=== PATIENT | male | born 1990 | race Caucasian/White ===

== ENCOUNTER 2016-09-06 15:32 | Emergency (ER) | payer BC ==
[2016-09-06 15:58] VITALS: BP 133/76
--- NOTE | 2016-09-06 16:13 | UC ---
Lower Extremity/Ankle HPI - HPI Summary HPI Summary: rolled right ankle 2d ago while playing basketball. Has sprained this ankle multiple times, this pain feels different. Foot went forward and hyperflexed during injury. Can bear weight, but painful. Would like XRay since it feels different from prior sprains. - History of Current Complaint Chief Complaint: UCLowerExtremity Stated Complaint: RIGHT ANKLE INJURY Time Seen by Provider: 09/06/16 16:05 Hx Obtained From: Patient Onset/Duration: Sudden Onset, Lasting Days - 2 Severity Initially: Mild Severity Currently: Mild Aggravating Factor(s): Ambulation Alleviating Factor(s): Rest, Elevation, Ice Able to Bear Weight: Yes - limping gait - Risk Factors Gout Risk Factors: Male DVT Risk Factors: Negative Septic Arthritis Risk Factor: Negative - Allergies/Home Medications Allergies/Adverse Reactions: Allergies Allergy/AdvReac Type Severity Reaction Status Date / Time No Known Allergies Allergy Verified 09/06/16 15:58 Home Medications: Home Medications Ibuprofen TAB* [Advil TAB*] 400 mg PO Q6H PRN 09/06/16 [History Confirmed ] Multiple Vitamin [Multi Vitamin] 1 tab PO DAILY 09/06/16 [History Confirmed ] PMH/Surg Hx/FS Hx/Imm Hx Endocrine History Of: Reports: Diabetes, Thyroid Disease - s/p thyroidectomy - Surgical History Surgical History: Yes Surgery Procedure, Year, and Place: Thyroidectomy, 2014, [place]; Right Shoulder , 2009, [place] - Family History Known Family History: Positive: Hypertension Negative: Diabetes - Social History Occupation: Employed Full-time Lives: With Family Alcohol Use: Weekly Substance Use Type: None Smoking Status (MU): Never Smoked Tobacco - Immunization History Most Recent Influenza Vaccination: Not the Season Review of Systems Constitutional: Negative Skin: Negative Eyes: Negative ENT: Negative Respiratory: Negative Cardiovascular: Negative Gastrointestinal: Negative Genitourinary: Negative Motor: Negative Neurovascular: Negative Musculoskeletal: Arthralgia, Edema, Myalgia Neurological: Negative Psychological: Negative All Other Systems Reviewed And Are Negative: Yes Physical Exam Triage Information Reviewed: Yes Appearance: Well-Appearing, No Pain Distress, Well-Nourished Vital Signs: Initial Vital Signs Temp 98.5 F 09/06/16 15:47 Pulse 80 09/06/16 15:47 Resp 14 09/06/16 15:47 BP 133/76 09/06/16 15:47 Pulse Ox 100 09/06/16 15:47 Vital Signs Reviewed: Yes Eye Exam: Normal Respiratory Exam: Normal Cardiovascular Exam: Normal Musculoskeletal Exam: Other - tenderness and mild swelling over lateral malleolus. Bruising beneath medial malleolus. No pain at base 5th MT or dorsum foot. Neurological Exam: Normal Psychological Exam: Normal Skin Exam: Normal Diagnostics - Laboratory Diagnostic Studies Completed/Ordered: xray neg Lower Extremity Course/Dx - Differential Dx/Diagnosis Differential Diagnosis/HQI/PQRI: Fracture (Closed), Sprain Provider Diagnoses: ankle sprain Discharge - Discharge Plan Condition: Stable Disposition: HOME Patient Education Materials: Ankle Sprain (ED), Ankle Stirrup Splint (ED), Ankle Exercises (GEN) Referrals: Non Staff,Doctor [Primary Care Provider] -
--- NOTE | 2016-09-06 16:35 | RAD ---
INDICATION: Right ankle injury COMPARISON: None TECHNIQUE: AP, lateral, and oblique views were obtained. FINDINGS: The bony structures, joint spaces, and soft tissues are normal for age. IMPRESSION: NEGATIVE EXAMINATION
== END 2016-09-06 16:58 | disposition home or self-care (01) ==
LOC: UCCORT 15:32
DX: S93.401A Sprain of unspecified ligament of right ankle, initial encounter (principal); X50.1XXA Overexertion from prolonged static or awkward postures, initial encounter; Y93.67 Activity, basketball; Y92.310 Basketball court as the place of occurrence of the external cause
CPT/HCPCS: 99212; G0463

== ENCOUNTER 2016-10-11 08:04 | Emergency (ER) | payer BC ==
[2016-10-11 08:27] VITALS: BP 101/57
--- NOTE | 2016-10-11 08:37 | UC ---
Throat Pain/Nasal Cain HPI - HPI Summary HPI Summary: sinus pain and pressure x 10 days , + nasal congestion , cough , no fever, no chills + right eye redness, no eye pain , no changed in vision - History of Current Complaint Chief Complaint: UCRespiratory Stated Complaint: SINUS COMPLAINT Time Seen by Provider: 10/11/16 08:11 Hx Obtained From: Patient Onset/Duration: Gradual Onset, Lasting Days - 10, Still Present Severity: Moderate Cough: Nonproductive Associated Signs & Symptoms: Positive: Sinus Discomfort, Nasal Discharge. Negative: Fever, Vomiting - Allergies/Home Medications Allergies/Adverse Reactions: Allergies Allergy/AdvReac Type Severity Reaction Status Date / Time environmental Allergy Congestion Uncoded 10/11/16 08:27 PMH/Surg Hx/FS Hx/Imm Hx Endocrine History Of: Reports: Diabetes - insulin, Thyroid Disease - s/p thyroidectomy - Surgical History Surgical History: Yes Surgery Procedure, Year, and Place: Thyroidectomy, 2014, [place]; Right Shoulder , 2009, [place] - Family History Known Family History: Positive: Hypertension Negative: Diabetes - Social History Alcohol Use: Weekly Substance Use Type: None Smoking Status (MU): Never Smoked Tobacco - Immunization History Most Recent Influenza Vaccination: Not the Season Review of Systems Constitutional: Negative Skin: Negative Eyes: Drainage, Eye Redness ENT: Nasal Discharge Respiratory: Cough Cardiovascular: Negative Gastrointestinal: Negative All Other Systems Reviewed And Are Negative: Yes Physical Exam Triage Information Reviewed: Yes Appearance: Well-Appearing, No Pain Distress, Well-Nourished Vital Signs: Initial Vital Signs Temp 98.1 F 10/11/16 08:16 Pulse 81 10/11/16 08:16 Resp 18 10/11/16 08:16 BP 101/57 10/11/16 08:16 Pulse Ox 98 10/11/16 08:16 Vital Signs Reviewed: Yes Eyes: Positive: Conjunctiva Inflamed - right eye. Negative: Discharge ENT: Positive: Normal ENT inspection, Hearing grossly normal, Pharyngeal erythema, Nasal congestion, Nasal drainage, TMs normal Dental Exam: Normal Neck: Positive: Supple, Nontender, No Lymphadenopathy Respiratory: Positive: Chest non-tender, Lungs clear, Normal breath sounds Cardiovascular Exam: Normal Cardiovascular: Positive: RRR, No Murmur, Pulses Normal Skin Exam: Normal Throat Pain/Nasal Course/Dx - Differential Dx/Diagnosis Provider Diagnoses: sinusitis. conjunctivitis Discharge - Discharge Plan Condition: Stable Disposition: HOME Prescriptions: Amoxicillin/Clavulanate TAB* [Augmentin TAB 875*] 875 mg PO BID #20 tab Tobramycin 0.3% OPHTH.DEV* 1 drop BOTH EYES Q4H #1 btl Patient Education Materials: Sinusitis (ED), Conjunctivitis (ED) Referrals: Non Staff,Doctor [Primary Care Provider] - Additional Instructions: follow up with your pcp in 7 days
== END 2016-10-11 08:44 | disposition home or self-care (01) ==
LOC: UCCORT 08:04
DX: J32.9 Chronic sinusitis, unspecified (principal); H10.31 Unspecified acute conjunctivitis, right eye; E11.9 Type 2 diabetes mellitus without complications; Z79.4 Long term (current) use of insulin
CPT/HCPCS: 99212; G0463

== ENCOUNTER 2017-11-03 14:51 | Emergency (ER) | payer BC ==
[2017-11-03 15:30] VITALS: BP 115/75
--- NOTE | 2017-11-03 16:35 | UC ---
Throat Pain/Nasal Cain HPI - HPI Summary HPI Summary: 27 yo male with sore throat x 4 days mild URI symptoms no fever he has been exposed to strep - History of Current Complaint Chief Complaint: UCRespiratory Stated Complaint: ST, COUGH, CONGESTION Time Seen by Provider: 11/03/17 15:41 Hx Obtained From: Patient Onset/Duration: Sudden Onset Severity: Moderate Pain Intensity: 4 Pain Scale Used: 0-10 Numeric Cough: None Associated Signs & Symptoms: Positive: Nasal Discharge - Epiglottits Risk Factors Epiglottis Risk Factors: Negative - Allergies/Home Medications Allergies/Adverse Reactions: Allergies Allergy/AdvReac Type Severity Reaction Status Date / Time environmental Allergy Congestion Uncoded 11/03/17 15:27 PMH/Surg Hx/FS Hx/Imm Hx Previously Healthy: Yes Endocrine History: Diabetes Cancer History: Other Other Cancer History: papillary thyroid CA - Surgical History Surgical History: Yes Surgery Procedure, Year, and Place: Thyroidectomy, 2014, [place]; Right Shoulder , 2009, [place] - Family History Known Family History: Positive: Hypertension, Diabetes - Social History Alcohol Use: Weekly Substance Use Type: None Smoking Status (MU): Never Smoked Tobacco - Immunization History Most Recent Influenza Vaccination: Not the Season Review of Systems Constitutional: Negative Skin: Negative Eyes: Negative ENT: Sore Throat, Nasal Discharge Respiratory: Cough Cardiovascular: Negative Gastrointestinal: Negative Genitourinary: Negative Motor: Negative Neurovascular: Negative Musculoskeletal: Negative Neurological: Negative Psychological: Negative Is Patient Immunocompromised?: No All Other Systems Reviewed And Are Negative: Yes Physical Exam Triage Information Reviewed: Yes Appearance: Well-Appearing, No Pain Distress, Well-Nourished Vital Signs: Initial Vital Signs Temp 99 F 11/03/17 15:25 Pulse 91 11/03/17 15:25 Resp 16 11/03/17 15:25 BP 115/75 11/03/17 15:25 Pulse Ox 98 11/03/17 15:25 Vital Signs Reviewed: Yes Eyes: Positive: Conjunctiva Clear ENT: Positive: Hearing grossly normal, Pharyngeal erythema. Negative: Nasal congestion, Nasal drainage, Tonsillar swelling, Tonsillar exudate, Trismus, Muffled voice, Sinus tenderness, Uvula midline Neck: Positive: Supple, Nontender, No Lymphadenopathy Respiratory: Positive: Lungs clear, Normal breath sounds, No respiratory distress, No accessory muscle use Cardiovascular: Positive: RRR, No Murmur Musculoskeletal: Positive: ROM Intact, No Edema Neurological: Positive: Alert Psychological Exam: Normal Skin Exam: Normal Diagnostics - Laboratory Diagnostic Studies Completed/Ordered: strep (-) Throat Pain/Nasal Course/Dx - Differential Dx/Diagnosis Provider Diagnoses: viral URI Discharge - Sign-Out/Discharge Documenting (check all that apply): Discharge - Discharge Plan Condition: Stable Disposition: HOME Patient Education Materials: Viral Syndrome (ED) Referrals: Non Staff,Doctor [Primary Care Provider] - Additional Instructions: RECHECK FOR NEW OR WORSENING SYMPTOMS recheck in 3 days if not better your strep test was (-) - Billing Disposition and Condition Condition: STABLE Disposition: HOME
== END 2017-11-03 15:59 | disposition home or self-care (01) ==
LOC: UCCORT 14:51
DX: J06.9 Acute upper respiratory infection, unspecified (principal); E11.9 Type 2 diabetes mellitus without complications
CPT/HCPCS: 87651; 99211; G0463